=== PATIENT | male | born 1960 | race Caucasian/White ===

== ENCOUNTER 2018-09-28 13:26 | Observation (INO) | payer OTHER ==
[~2018-09-28] VITALS: Ht 182.9 cm; Wt 97.5 kg
[~2018-09-28 13:26] MED LIST: ASPIRIN325 MG PO; LIPITOR20 MG; LISINOPRIL10 MG PO; METOPROLOL TART25 MG PO; NITROGLYCERIN0.4 MG SL; PLAVIX75 MG PO
--- OUTSIDE RECORDS SUMMARY | 2018-09-28 13:28 | XMS REPORT | Continuity of Care Document ---
Author Author [facility] Interface Address Unknown Phone Unavailable Problems Problem Status Onset Date Classification Date Reported Comments Source M54.5 Active 02/19/2018 [facility] Presence of coronary angioplasty implant and graft 12/03/2017 03/05/2018 [facility] PTCA Active 09/13/2017 [facility] ORDER Active 09/04/2017 [facility] HALLUX RIGIDUS Active [facility] Medications Medication Details Route Status Patient Instructions Ordering Provider Order Date Source Allergies, Adverse Reactions, Alerts Substance Category Reaction Severity Reaction type Status Date Reported Comments Source Immunizations Immunization Date Given Site Status Last Updated Comments Source Results Order Name Results Value Reference Range Date Interpretation Comments Source Spine lumbar wo contrast MRI Spine lumbar wo contrast MRI Patient Name: MARSHA NAVAS : 1960; Age: 57 years y/o Male MR: [id number] Study: Spine lumbar wo contrast MRI 03/15/2018 7:10 AM CDT Clinical Indication: Tech:[place] - Patient states chronic lower back pain radiating to above the right hip persisting over the past 5 years. No specific injury occured.; Comparison: None TECHNIQUE: Multiplanar T1, FSE and FSE fat-sat weighted noncontrast MRI of the lumbar spine is performed on the 1.5 Nadya magnet. FINDINGS: ALIGNMENT AND GENERAL ASSESSMENT: This study assumes 5 lumbar type vertebral bodies. The conus medullaris terminates in a normal location and no abnormal signal identified in the lower spinal cord. Edematous changes are seen about the mid and right inferior aspect of L4 and mid and right superior aspect of L5. No paraspinal abnormality is seen in this region. No definite destruction of the endplates in this region. Findings likely represent edematous degenerative marrow changes. No other bony marrow abnormality identified. Disc desiccation is seen at L2-L3, L3-L4 and L4-L5. The bladder appears distended. There appear to be bilateral parapelvic renal cysts. DISC SPACES: T12-L1: No focal herniated nucleus pulposus, neural foraminal narrowing or spinal canal stenosis. L1-L2: Bilateral facet hypertrophy. Diffuse disc bulge. No spinal canal stenosis and no neural foraminal narrowing bilaterally. L2-L3: Diffuse disc bulge. Bilateral facet hypertrophy. No spinal canal stenosis and no neural foraminal narrowing bilaterally. L3-L4: Bilateral facet hypertrophy. Mild disc bulge. No spinal canal stenosis and no neural foraminal narrowing bilaterally. L4-L5: Bilateral facet hypertrophy. Diffuse disc bulge. Mild bilateral L4-L5 neural foraminal narrowing. No spinal canal stenosis. L5-S1: Bilateral facet hypertrophy. No focal herniated nucleus pulposus, neural foraminal narrowing or spinal canal stenosis. IMPRESSION: 1. Findings most consistent with edematous degenerative marrow changes about L4-L5. 2. Distended bladder. 3. There appear to be bilateral parapelvic renal cysts. 4. Multilevel disc bulging and multilevel facet hypertrophy as above. 5. Mild bilateral L4-L5 neural foraminal narrowing. SL: CSODERSTROM-JILL 03/15/2018 - - Read by: Hieu Shay MD Dictated Date/time: 03/15/18 16:41 Electronically Signed by: Hieu Shay MD 03/15/18 16:54 FINAL REPORT [facility] Foot series DX Foot series DX Right foot 3 views: There is no fracture or dislocation. There is marked narrowing of the 1st MP joint with flattening and sclerosis of the articular surfaces and periarticular spurring. There are no other significant osseous, articular or soft tissue abnormalities. 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 [id number] 05/25/2016 - - Read by: Tacho Moore MD Dictated Date/time: 05/25/16 14:27 Electronically Signed by: Tacho Moore MD 05/25/16 14:28 FINAL REPORT [facility] Vital Signs Vital Sign Value Date Comments Source Weight 93.182 10/28/2017 [facility] BMI Calculated 27.86 10/28/2017 [facility] Height 182.88 cm 10/28/2017 [facility] BMI Calculated 30.58 09/13/2017 [facility] Height 182.88 cm 09/13/2017 [facility] Weight 102.273 09/13/2017 [facility] Encounters Location Location Details Encounter Type Encounter Number Reason For Visit Attending Provider ADM Date DC Date Status Source [facility] Outpatient [id number] Tobias Morales III 05/25/2016 05/26/2016 [facility] Recurring [id number] Justino Egan 09/13/2017 10/13/2017 [facility] Recurring [id number] Justino Egan 10/28/2017 11/27/2017 [facility] Outpatient [id number] Justino Egan 03/15/2018 03/16/2018 [facility] Procedures Procedure Code Date Perfomer Comments Source
--- OUTSIDE RECORDS SUMMARY | 2018-09-28 13:29 | XMS REPORT | Summary of Care ---
Author Author [facility] Organization [facility] Address Unknown Phone Unavailable Encounter HQ Encntr_alias(FIN) [id number] Date(s): 03/15/18 - 03/15/18 [facility] [address] [place] [address]- Discharge Disposition: Home or Self Care Attending Physician: Justino Egan MD Referring Physician: Ti Rubalcava Vital Signs No data available for this section Problem List No data available for this section Allergies, Adverse Reactions, Alerts No data available for this section Medications No data available for this section Results No data available for this section Immunizations No data available for this section Procedures No data available for this section Social History No data available for this section Assessment and Plan No data available for this section
--- OUTSIDE RECORDS SUMMARY | 2018-09-28 13:29 | XMS REPORT | Summary of Care ---
Author Author [facility] Organization [facility] Address Unknown Phone Unavailable Encounter HQ Encntr_aliaba(FIN) [id number] Date(s): 05/25/16 - 05/25/16 [facility] [address] [place] [address]- [phone] Discharge Disposition: Home or Self Care Attending Physician: Tobias Romero DPM Vital Signs No data available for this [...]
--- OUTSIDE RECORDS SUMMARY | 2018-09-28 13:29 | XMS REPORT | Summary of Care ---
Author Author [facility] Organization [facility] Address Unknown Phone Unavailable Encounter HQ Alicia(FIN) [id number] Date(s): 10/28/17 - 11/26/17 [facility] [address] [place] [address]- [phone] Encounter Diagnosis Presence of coronary angioplasty implant and graft (Final) - 12/02/17 Discharge Disposition: Home or Self Care Attending Physician: Justino Egan MD Referring Physician: Justino Egan MD Vital Signs Most recent to 1 oldest [Reference Range]: Height 182.88 cm (10/28/17 12:20 PM) Weight 93.182 kg (10/28/17 12:20 PM) Body Mass Index 27.86 m2 (10/28/17 12:20 PM) Problem List No data available for this [...]
--- OUTSIDE RECORDS SUMMARY | 2018-09-28 13:29 | XMS REPORT ---
Author Author [facility] Address Unknown Phone Unavailable Care Team Providers Care Account Executive Key Accounts Name Role Phone CASEY JACKSON Unavailable Unavailable Problems This patient has no known problems. Allergies, Adverse Reactions, Alerts This patient has no known allergies or adverse reactions. Medications This patient has no known medications. Results Test Description Test Time Test Comments Text Results Atomic Results Result Comments CHEST SINGLE (PORTABLE) [place] [address] Patient Name: MARSHA NAVAS III MR #: [id number] : 1960 Age/Sex: 56/M Acct #: [id number] Req #: [id number] Adm Physician: CASEY JACKSON MD Ordered by: TELMA VIVEROS MD Report #: [id number] Location: ICU Room/Bed: ICU [facility] Procedure: [id number] DX/CHEST SINGLE (PORTABLE) Exam Date: 08/19/17 Exam Time: 0530 REPORT STATUS: Signed EXAM: CHEST SINGLE (PORTABLE), AP 1 view DATE: 08/19/2017 5:00 AM Time stamp on exam: 0530 hours INDICATION: STEMI COMPARISON: None FINDINGS: LINES/TUBES: None LUNGS: No consolidations or edema. PLEURA: No effusions or pneumothorax. HEART AND MEDIASTINUM: Normal size and contour. BONES AND SOFT TISSUES: No acute findings. IMPRESSION: No acute thoracic abnormality. Signed by: Dr. Jw Pacheco M.D. on 08/19/2017 6:53 AM Dictated By: JW PACHECO MD 2 Transcribed By: JERED on 08/19/17652 COPY TO: TELMA VIVEROS MD CHEST SINGLE (PORTABLE) [place] [address] Patient Name: MARSHA NAVAS III MR #: [id number] : 1960 Age/Sex: 56/M Acct #: [id number] Req #: [id number] Adm Physician: Ordered by: COREY STEPHENSON MD Report #: [id number] Location: ER Room/Bed: Procedure: [id number] DX/CHEST SINGLE (PORTABLE) Exam Date: 08/18/17 Exam Time: 1954 REPORT STATUS: Signed EXAM: CHEST SINGLE (PORTABLE), AP 1 view DATE: 08/18/2017 7:43 PM Time stamp on exam: 1946 hours INDICATION: STEMI, chest pain COMPARISON: None FINDINGS: LINES/TUBES: None LUNGS: No consolidations or edema. PLEURA: No effusions or pneumothorax. HEART AND MEDIASTINUM: Normal size and contour. BONES AND SOFT TISSUES: No acute findings. IMPRESSION: No acute thoracic abnormality. Signed by: Dr. Jw Pacheco M.D. on 08/18/2017 8:10 PM Dictated By: JW PACHECO MD 09 Transcribed By: JERED on 08/18/172009 COPY TO: COREY STEPHENSON MD
[2018-09-28] MEDS ORDERED: TRAZODONE HCL50 MG PO (13:43)
[2018-09-28] MEDS ORDERED: LOSARTAN POTASS25 MG PO (13:43)
[2018-09-28 14:02] LABS: BASOPHILS % 0.4 % (0.0-1.0); EOSINOPHILS # (AUTO) 0.2 (0.0-0.4); EOSINOPHILS % 1.9 % (0.0-6.0); HEMOGLOBIN 14.6 g/dL (14.0-18.0); LYMPHOCYTES # (AUTO) 2.5 (1.0-3.2); LYMPHOCYTES % 31.8 % (18.0-39.1); MEAN CORPUSCULAR HEMOGLOBIN 30.2 pg (28-32); MEAN CORPUSCULAR HGB CONC 33.2 g/dL (31-35); MEAN CORPUSCULAR VOLUME 91.1 fL (81-99); MONOCYTES # (AUTO) 0.7 (0.2-0.8); MONOCYTES % 8.7 % (4.4-11.3); NEUTROPHILS # (AUTO) 4.4 (2.1-6.9); NEUTROPHILS % 56.9 % (38.7-80.0); PLATELET COUNT 164 x10e3/uL (140-360); RED BLOOD COUNT 4.83 x10e6/uL (4.3-5.7); RED CELL DISTRIBUTION WIDTH 12.9 % (11.7-14.4)
[2018-09-28 14:10] LABS: INR 0.84; PROTHROMBIN TIME 12.3 seconds (11.9-14.5)
[2018-09-28 14:11] LABS: PARTIAL THROMBOPLASTIN TIME 26.5 seconds (23.8-35.5)
[2018-09-28 14:19] LABS: ALANINE AMINOTRANSFERASE 42 IU/L (0-55); ALBUMIN 4.4 g/dL (3.5-5.0); ALBUMIN/GLOBULIN RATIO 1.5 (0.8-2.0); ALKALINE PHOSPHATASE 68 IU/L (40-150); ANION GAP 13.2 mmol/L (8-16); BLOOD UREA NITROGEN 14 mg/dL (7-26); BUN/CREATININE RATIO 14 (6-25); CALCIUM 9.8 mg/dL (8.4-10.2); CARBON DIOXIDE 26 mmol/L (22-29); CHLORIDE 100 mmol/L (98-107); CREATINE KINASE 87 IU/L (30-200); CREATININE, SERUM 0.98 mg/dL (0.72-1.25); EST GLOMERULAR FILTRATION RATE > 60 ML/MIN (60-); GLUCOSE 97 mg/dL (74-118); POTASSIUM 4.2 mmol/L (3.5-5.1); SODIUM 135 mmol/L (136-145)
[2018-09-28] MEDS ORDERED: ASPIRIN 81 MG CHEW TAB PO ONE (14:30)
[2018-09-28 14:56] LABS: CLARITY,URINE CLEAR (CLEAR); COLOR,URINE YELLOW (YELLOW)
[2018-09-28 14:58] LABS: LEUKOCYTE ESTERASE ,URINE NEGATIVE (NEGATIVE); NITRITE,URINE NEGATIVE (NEGATIVE); PROTEIN,URINE DIPSTICK NEGATIVE (NEGATIVE)
[2018-09-28 14:59] LABS: BILIRUBIN,URINE NEGATIVE (NEGATIVE); KETONES,URINE NEGATIVE (NEGATIVE); URINE UROBILINOGEN 0.2 mg/dL (0.2 - 1)
[2018-09-28 15:00] LABS: BACTERIA,URINE FEW /HPF; EPITHELIAL CELLS,URINE FEW /LPF; RBC,URINE 0-5 /HPF (0-5)
--- NOTE | 2018-09-28 15:26 | Diagnostic Imaging Report ---
EXAMINATION: CHEST 2 VIEWS INDICATION: Chest pain, history of [place] ^CHEST PAIN ^[id number] ^1426 ^Y COMPARISON: Reports of chest x-rays performed 08/12 03/09 and 08/19/2017 FINDINGS: PA and lateral views TUBES and LINES: None. LUNGS: Lungs are well inflated. There is no evidence of pneumonia or pulmonary edema. PLEURA: No pleural effusion or pneumothorax. HEART AND MEDIASTINUM: The cardiomediastinal silhouette is unremarkable. BONES AND SOFT TISSUES: Several serpiginous sclerotic foci in the medulla of the right humerus may represent in chondromas or bone infarcts. Soft tissues are unremarkable. UPPER ABDOMEN: No free air under the diaphragm. IMPRESSION: No acute thoracic abnormality. Signed by: Dr. Tim Thao MD on 09/28/2018 3:23 PM
[2018-09-28] MEDS ORDERED: CRESTOR20 MG PO (16:44)
[2018-09-28] MEDS ORDERED: ONDANSETRON HCL INJ 2MG/ML 2ML 2 MG/ML VIAL IV PRN (17:15)
[2018-09-28] MEDS ORDERED: NITROGLYCERIN 0.4 MG SUBL SL PRN ×2 (17:15→22:15)
--- NOTE | 2018-09-28 17:52 | NUR ---
Pt received his dinner tray. Repositioned for comfort while eating. VSS. No difficulty swallowing or eating reported. Will monitor.
--- NOTE | 2018-09-28 19:20 | NUR ---
Report to PIYUSH Sinha. No acute distress. AA&Ox4, family at the bedside, VSS.
[2018-09-28 19:26] LABS: CREATINE KINASE MB 0.8 ng/mL (0-5.0)
[2018-09-29] VITALS (24 sets, daily range): BP systolic 114–154; BP diastolic 61–86
[2018-09-29] MEDS: FAMOTIDINE 20 MG/2 ML VIAL IV SCH ×3 (00:47→21:42)
[2018-09-29 06:37] LABS: BASOPHILS % 0.6 % (0.0-1.0); EOSINOPHILS # (AUTO) 0.2 (0.0-0.4); EOSINOPHILS % 3.5 % (0.0-6.0); HEMATOCRIT 43.2 % (38.2-49.6); HEMOGLOBIN 14.4 g/dL (14.0-18.0); LYMPHOCYTES # (AUTO) 2.7 (1.0-3.2); LYMPHOCYTES % 38.3 % (18.0-39.1); MEAN CORPUSCULAR HEMOGLOBIN 30.1 pg (28-32); MEAN CORPUSCULAR HGB CONC 33.3 g/dL (31-35); MEAN CORPUSCULAR VOLUME 90.2 fL (81-99); MONOCYTES # (AUTO) 0.6 (0.2-0.8); MONOCYTES % 8.6 % (4.4-11.3); NEUTROPHILS # (AUTO) 3.4 (2.1-6.9); NEUTROPHILS % 48.9 % (38.7-80.0); PLATELET COUNT 155 x10e3/uL (140-360); RED BLOOD COUNT 4.79 x10e6/uL (4.3-5.7)
--- NOTE | 2018-09-29 06:42 | NUR ---
reminded patient he is npo going foward from 0600. patient acknowledged.
[2018-09-29 07:10] LABS: ALANINE AMINOTRANSFERASE 34 IU/L (0-55); ALBUMIN 3.6 g/dL (3.5-5.0); ALBUMIN/GLOBULIN RATIO 1.3 (0.8-2.0); ALKALINE PHOSPHATASE 57 IU/L (40-150); ANION GAP 12.2 mmol/L (8-16); BLOOD UREA NITROGEN 12 mg/dL (7-26); BUN/CREATININE RATIO 14 (6-25); CALCIUM 8.9 mg/dL (8.4-10.2); CARBON DIOXIDE 23 mmol/L (22-29); CHLORIDE 106 mmol/L (98-107); CHOL/HDL RATIO 3.3 (3.9-4.7); CHOLESTEROL 189 MD/DL (0-199); CREATININE, SERUM 0.87 mg/dL (0.72-1.25); EST GLOMERULAR FILTRATION RATE > 60 ML/MIN (60-); GLUCOSE 93 mg/dL (74-118); HDL CHOLESTEROL 57 MG/DL (40-60); LDL CHOLESTEROL 91 MG/DL (60-130); POTASSIUM 4.2 mmol/L (3.5-5.1); SODIUM 137 mmol/L (136-145); TRIGLYCERIDES 207 MG/DL (0-149)
[2018-09-29 07:17] LABS: CREATINE KINASE MB 0.9 ng/mL (0-5.0)
--- NOTE | 2018-09-29 07:17 | NUR ---
walking rounds with pham jo
--- NOTE | 2018-09-29 07:43 | NUR ---
Pt is scheduled for a heart cath at 1130. Consent obtained. Pt is NPO at this time. Dr. Egan is scheduling the electroplating laborer.
[2018-09-29] MEDS ORDERED: ASPIRIN 325 MG TAB EC PO SCH (09:00)
[2018-09-29] MEDS ORDERED: ASPIRIN 81 MG ENTERIC COATED PO SCH (09:00)
[2018-09-29] MEDS: ASPIRIN 325 MG TAB PO SCH (09:00)
[2018-09-29] MEDS: ROSUVASTATIN CALCIUM PO SCH (09:00)
[2018-09-29] MEDS: LOSARTAN POTASSIUM 25 MG TAB PO SCH (09:00)
[2018-09-29] MEDS: CLOPIDOGREL BISULFATE 75 MG TAB PO SCH (09:00)
[2018-09-29] MEDS: METOPROLOL TARTRATE 25 MG TAB PO SCH ×2 (09:00→17:00)
[2018-09-29] MEDS ORDERED: MIDAZOLAM HCL 2 MG/2 ML VIAL ONE ×3 (10:29→11:56)
[2018-09-29] MEDS ORDERED: FENTANYL CITRATE/PF 100MCG/2 ML INJ ONE ×2 (10:29→11:56)
[2018-09-29] MEDS ORDERED: IOPAMIDOL 370 MG/ML 200 ML INFUS..BTL INJ ONE ×3 (10:30→11:40)
[2018-09-29] MEDS ORDERED: SODIUM CHLORIDE 0.9% 1000ML 1,000 ML ONE (10:30)
[2018-09-29] MEDS ORDERED: LIDOCAINE HCL 1% LOCAL INJ 20 ML VIAL ONE (10:30)
[2018-09-29] MEDS ORDERED: HEPARIN SOD/SOD CHLORIDE 2,000 ML ONE (10:30)
--- NOTE | 2018-09-29 10:56 | NUR ---
Both groins clipped and cleaned for Personnel Clerks Supervisor. No acute distress, VSS. Pt has been ambulatory around unit with nurse to relieve anxiety and boredom. No distress, no complaints of chest pain, SOB, or dizziness. Personnel Clerks Supervisor team arrived to take pt for procedure. Care transferred to CL team without incident.
[2018-09-29] MEDS ORDERED: EPTIFIBATIDE 75mg 100ML 100 ML ONE ×3 (12:07→21:36)
[2018-09-29] MEDS ORDERED: EPTIFIBATIDE 20 ML ONE (12:07)
[2018-09-29] MEDS ORDERED: CLOPIDOGREL BISULFATE 75 MG TAB ONE (12:27)
[2018-09-29] MEDS ORDERED: ASPIRIN 325 MG TAB ONE (12:27)
[2018-09-29] MEDS ORDERED: HYDROCODONE/APAP 5MG-325MG TAB ONE (16:43)
--- NOTE | 2018-09-29 19:10 | NUR ---
RECEIVED FROM EGG BREAKING MACHINE OPERATOR, AWAKE AND ALERT, ORIENTED X 3, NO C/O PAIN. DRESSING TO RIGHT GROIN C/D/I, AREA SOFT TO PALPATION.
[2018-09-29 19:55] LABS: CREATINE KINASE MB 0.6 ng/mL (0-5.0)
[2018-09-29] MEDS ORDERED: TRAZODONE HCL 50 MG TAB PO SCH (21:00)
[2018-09-29] MEDS ORDERED: HYDROCODONE/APAP 5MG-325MG TAB PO PRN (21:30)
[2018-09-29] MEDS ORDERED: ZOLPIDEM TARTRATE 5 MG TAB PO PRN (21:30)
[2018-09-29] MEDS ORDERED: MORPHINE SULFATE INJ 4 MG/ML INJ 1ML IV PRN (21:30)
--- NOTE | 2018-09-29 21:30 | NUR ---
PATIENT AMBULATING IN NURSES STATION, NO SOB NOTED, NO C/O PAIN. CATH SITE TO RIGHT GROIN REMAINS SOFT, WITH NO BLEEDING NOTED AFTER AMBULATION
[2018-09-30] VITALS (13 sets, daily range): BP systolic 103–133; BP diastolic 61–79
[2018-09-30] MEDS ORDERED: EPTIFIBATIDE 75mg 100ML 100 ML IV ONE (01:45)
[2018-09-30 05:04] LABS: BASOPHILS % 0.5 % (0.0-1.0); EOSINOPHILS # (AUTO) 0.2 (0.0-0.4); EOSINOPHILS % 2.1 % (0.0-6.0); HEMATOCRIT 39.3 % (38.2-49.6); HEMOGLOBIN 13.2 g/dL (14.0-18.0); LYMPHOCYTES # (AUTO) 2.2 (1.0-3.2); LYMPHOCYTES % 25.4 % (18.0-39.1); MEAN CORPUSCULAR HEMOGLOBIN 30.8 pg (28-32); MEAN CORPUSCULAR HGB CONC 33.6 g/dL (31-35); MEAN CORPUSCULAR VOLUME 91.6 fL (81-99); MONOCYTES # (AUTO) 0.7 (0.2-0.8); MONOCYTES % 8.2 % (4.4-11.3); NEUTROPHILS # (AUTO) 5.4 (2.1-6.9); NEUTROPHILS % 63.6 % (38.7-80.0); PLATELET COUNT 151 x10e3/uL (140-360); RED BLOOD COUNT 4.29 x10e6/uL (4.3-5.7)
[2018-09-30 05:40] LABS: ANION GAP 14.3 mmol/L (8-16); BLOOD UREA NITROGEN 10 mg/dL (7-26); BUN/CREATININE RATIO 12 (6-25); CALCIUM 8.7 mg/dL (8.4-10.2); CARBON DIOXIDE 26 mmol/L (22-29); CHLORIDE 104 mmol/L (98-107); CREATININE, SERUM 0.85 mg/dL (0.72-1.25); EST GLOMERULAR FILTRATION RATE > 60 ML/MIN (60-); GLUCOSE 96 mg/dL (74-118); POTASSIUM 4.3 mmol/L (3.5-5.1); SODIUM 140 mmol/L (136-145)
--- NOTE | 2018-09-30 06:05 | NUR ---
INTEGRILIN GTT COMPLETED, CONVERTED TO SALINE LOCK AT THIS TIME
[2018-09-30] MEDS: FAMOTIDINE 20 MG/2 ML VIAL IV SCH (09:00)
[2018-09-30] MEDS: ROSUVASTATIN CALCIUM PO SCH (09:00)
[2018-09-30] MEDS ORDERED: LISINOPRIL 2.5 MG TAB PO SCH (09:00)
[2018-09-30] MEDS: LOSARTAN POTASSIUM 25 MG TAB PO SCH (09:30)
[2018-09-30] MEDS: ASPIRIN 325 MG TAB PO SCH (09:30)
[2018-09-30] MEDS: CLOPIDOGREL BISULFATE 75 MG TAB PO SCH (09:31)
[2018-09-30] MEDS: METOPROLOL TARTRATE 25 MG TAB PO SCH (09:31)
[2018-09-30] MEDS ORDERED: CRESTOR 10MG PO SCH (21:00)
[2018-09-30] MEDS ORDERED: NON-FORMULARY MEDICATION (Rosuvastatin Calcium (Crestor) 20 MG) PO SCH (21:00)
--- NOTE | 2018-12-17 05:26 | Operative Report ---
DATE OF PROCEDURE: 09/29/2018 SURGEON: Justino Egan MD PROCEDURES: 1. Left heart catheterization, LV angiogram, coronary angiogram. 2. Angioplasty and stent placement with significant stenosis of the circumflex artery. INDICATION FOR PROCEDURE: 1. Progressive angina pectoris, history of coronary artery disease. 2. History of stent placed in the past and the patient comes with recurrent chest pain. The procedure done at [facility]. After informed consent with conscious sedation, the right femoral artery. Results of test is as follows: Right coronary arteriogram shows a stent in the right coronary artery. His patent left coronary arteriogram shows normal left main artery. Proximally it has 20% lesion noted with calcification, 30% lesion noted in mid LAD artery. Circumflex artery shows proximally 70% to 75% lesion noted, mid stent. The stent is within normal limits and the OM2 artery has 50%-60% lesion. INTERVENTION PROCEDURE: At this time, I performed a coronary intervention of subcostal artery, first IV heparin was given and ACT was kept about 215, and the patient is already getting aspirin, Plavix. Using Hi-Torque Floppy Extra Support wire, I crossed the lesion. After that I dilated that with [employer] 2 x 15 mm balloon of the circumflex lesion. After that I deployed 3 x 24 mm Synergy [employer] stent with no complication and this stent is again postdilated with 3.25 x 12 mm noncomplaint balloon. The patient tolerated the procedure well and post-stent lesion is 0% and pre-stent lesion is 70% to 75%. Post-stent ROSSY flow is 3. The patient received aspirin, Plavix, and heparin-induced protocol. The patient will be kept in ICU for 24 hours and will be discharged in the morning. The patient at this time is stable and in good condition. Justino Egan MD PVB/TOBIL /[id number] MTDAndrey
--- NOTE | 2018-12-18 03:53 | Discharge Summary ---
DISCHARGE DIAGNOSES: 1. Progressive angina pectoris. 2. Coronary artery disease. 3. Hyperlipidemia. PROCEDURES: By Dr. Egan, 1. Left heart catheterization, LV angiogram, coronary angiogram. 2. Angioplasty and stent placement with significant stenosis of the circumflex artery. Please see the op report. This was done on 09/29/2018. DISCHARGE SUMMARY: The patient came with progressive angina pectoris. I performed angiogram, found to have significant lesion in proximal circumflex artery. This was dilated and stented with a 3 x 20 mm Synergy stent and post stent lesion is 0%. At this time, the patient kept for 24 hours. The patient received aspirin, Plavix, and heparin-induced protocol. The patient at this time discharged on following medications, which include aspirin 325 mg once a day, Plavix 75 mg once a day, Lipitor 10 mg once a day, lisinopril 5 mg once a day, metoprolol 25 mg p.o. b.i.d. The patient advised low-fat diet, low-salt diet, moderate physical activities, and the patient will follow up with my office. The patient discharged in good condition. The patient advised to take a couple of days rest at home, then he can go back to work. MD LUPE Dukes/PATTI /[id number]
--- NOTE | 2018-12-18 08:09 | Discharge Summary ---
DISCHARGE DIAGNOSES: 1. Angina pectoris. 2. Coronary artery disease. 3. Hypertension. 4. Hyperlipidemia. 5. History of coronary artery stent placement in the past. PROCEDURE: Done by Dr. Eagn. Left heart catheterization, LV angiogram, coronary angiogram, the right femoral artery and stent placement of the circumflex artery. DISCHARGE SUMMARY: The patient came with angina pectoris and positive stress test. The patient underwent above procedure complication. The patient sent home with the following medications, which include aspirin mg a day, Plavix 75 mg once a day, metoprolol tartrate 25 mg b.i.d., Lipitor 10 mg once a day, and nitroglycerin p.r.n. chest pain. The patient advised to follow with the office if any significant cardiac issues, acute chest pain, pain in the groin, he is to follow up with my office. The patient advised to take rest for a couple of days and the patient needs to go for rehabilitation. Also discussed with him the diet and further followup. The patient discharged in stable condition. Right groin is normal. MD LUPE Dukes/PATTI /[id number]
== END 2018-09-30 12:20 | disposition home or self-care (01) ==
LOC: ER 13:26 → ERHOLD 17:10 → ICU 09-29 19:23
PROVIDERS: ADMIT Internal Medicine Cardiovascular Disease; ATTEND Internal Medicine Cardiovascular Disease
DX: I25.118 Atherosclerotic heart disease of native coronary artery with other forms of angina pectoris (principal); I25.84 Coronary atherosclerosis due to calcified coronary lesion; I25.2 Old myocardial infarction; Z95.5 Presence of coronary angioplasty implant and graft; Z82.49 Family history of ischemic heart disease and other diseases of the circulatory system
CPT/HCPCS: 36415 ×3; 71046; 80048; 80053 ×2; 80061; 81001; 82550 ×2; 82553 ×2; 84484 ×2; 85025 ×3; 85347; 85610; 85730; 92928; 93005 ×2; 93458; 99284; C1725; C1760; C1874; C1887; G0378 ×3; J1327 ×2; J2001; J2250; J7030; Q9967

== ENCOUNTER → 2022-02-09 | Outpatient (CLI) | payer BC ==
[~2022-02-09] MED LIST changes: +CRESTOR20 MG PO; +LOSARTAN POTASS25 MG PO; +REGADENOSON 0.4 MG/5 ML SYR IV ONE; +TRAZODONE HCL50 MG PO
== END ==
LOC: NM 08:21
PROVIDERS: ATTEND Internal Medicine Cardiovascular Disease
DX: I25.10 Atherosclerotic heart disease of native coronary artery without angina pectoris (principal); I22.8 Subsequent ST elevation (STEMI) myocardial infarction of other sites; I10 Essential (primary) hypertension
CPT/HCPCS: 78452; 93017; A9502; J2785